=== PATIENT | male | born 1945 | race Hispanic/Latino ===

== ENCOUNTER 2017-09-05 06:38 | Day surgery (SDC) | payer MEDICARE ==
[2017-08-27 12:34] VITALS: BMI 25.8
[2017-09-05] MEDS ORDERED: Propofol 10 mg/ml Inj (20 ML) ONE ×3 (08:04→08:32)
[2017-09-05] MEDS ORDERED: Lidocaine 2% Inj (20ml) ONE (08:04)
[2017-09-05] MEDS ORDERED: Sodium Chloride 0.9% 1,000 ML IV SCH (09:00)
[2017-09-05 09:37] VITALS: BP 133/63; PULSE 67; RESP 20; TEMP 97.8; O2SAT 96
== END 2017-09-05 09:58 | disposition home or self-care (01) ==
LOC: ENDO 06:38
PROVIDERS: ATTEND Specialist
DX: Z12.11 Encounter for screening for malignant neoplasm of colon (principal); D12.4 Benign neoplasm of descending colon; D12.0 Benign neoplasm of cecum; D12.3 Benign neoplasm of transverse colon; K62.1 Rectal polyp; K64.8 Other hemorrhoids
CPT/HCPCS: 45380; 45381; 45385; 88305; J2704; J7040 ×2